=== PATIENT | female | born 1950 | race Caucasian/White ===

== ENCOUNTER → 2017-01-03 | Outpatient (CLI) | payer MEDICARE ==
[~2017-01-03] MED LIST: ADVIL200 MG PO
== END | disposition home or self-care (01) ==
LOC: RAD 12:15
DX: R05 Cough (principal); R09.89 Other specified symptoms and signs involving the circulatory and respiratory systems

== ENCOUNTER → 2017-01-19 | Outpatient (CLI) | payer MEDICARE ==
--- NOTE | ~2017-01-19 | PF ---
[place], [place] PULMONARY FUNCTION TEST NAME: KURTIS HOFFMAN [facility] #: [id number] UNIT #: [id number] ROOM: DOCTOR: АННА GLEASON MD,STEPHANIE BIRTHDATE: [birth year] DOS: 01/19/2017 PULMONARY FUNCTION TEST The testing was done on 01/19/2017. The test was ordered by Dr. Barksdale. HISTORY: The patient reported 66 years old female, height of 64 inches, weight of 185 pounds, BMI 31.8. The testing was done for assessment of chronic cough with the history of bronchial asthma. There was no past tobacco use. The patient was also noted with rare wheezing. SPIROMETRY: The FVC was recorded 3.18 liters, 104% predicted value. FEV1 was 2.53 liters at 109% predicted value. The ratio of FEV1/FVC was recorded as 80%. Flow volume loop for the patient was noted with findings suggestive of mild obstructive airway pattern. No significant changes noted postbronchodilator test. The patient's lung volume, thoracic gas volume recorded 90%, residual volume of 89%, total lung capacity 105%. The lung diffusion recorded as 74%. The patient ____ low normal range. The airway resistance, passive conductance were noted normal with partial improvement occurred post-bronchodilator test. FINAL IMPRESSION: The tests were noted with finding suggestive of mild reversible obstructive lung disease. STEPHANIE JJ MD CM:PFREPORT:PULMONARY FUNCTION TEST [id number] STEPHANIE GLEASON MD
== END | disposition home or self-care (01) ==
LOC: CP 08:33
DX: R05 Cough (principal); R06.2 Wheezing; Z87.09 Personal history of other diseases of the respiratory system